=== PATIENT | female | born 1995 ===

== ENCOUNTER → 2017-04-08 | Outpatient (REF) | LOC: WSOH 11:34 | DX: Z02.1 Encounter for pre-employment examination (principal) ==

== ENCOUNTER → 2017-04-12 | Outpatient (REF) | LOC: WSOH 15:45 | DX: Z02.89 Encounter for other administrative examinations (principal) ==

== ENCOUNTER → 2017-04-18 | Outpatient (REF) | LOC: WSOH 14:24 | DX: Z02.89 Encounter for other administrative examinations (principal) ==